=== PATIENT | female | born 1940 | race Asian ===

== ENCOUNTER → 2016-03-25 | Outpatient (CLI) | payer MEDICARE ==
[~2016-03-25] MED LIST: SYNT50TA PO; ZITH200S PO
[2016-03-25 13:31] LABS: HEMATOCRIT 43.7 % (35.0-46.0); MEAN CELL VOLUME 95.4 FL (80.0-100.0); MEAN CORPUSCULAR HEMOGLOBIN 31.7 PG (27.0-34.0); MEAN CORPUSCULAR HGB CONC 33.2 % (32.0-36.0); PLATELET COUNT 195 TH/MM3 (150-450); RED BLOOD COUNT 4.58 MIL/MM3 (4.00-5.30); RED CELL DISTRIBUTION WIDTH 14.3 % (11.6-17.2); REVIEW FLAG FINAL; WHITE BLOOD COUNT 5.3 TH/MM3 (4.0-11.0)
[2016-03-25 13:34] LABS: ALKALINE PHOSPHATASE 62 U/L (45-117); ALT (GPT) 17 U/L (10-53); ANION GAP 6 MEQ/L (5-15); AST (GOT) 14 U/L (15-37); BICARBONATE 30.4 MEQ/L (21.0-32.0); BLOOD UREA NITROGEN 15 MG/DL (7-18); CHLORIDE 103 MEQ/L (98-107); FREE T4 1.25 NG/DL (0.76-1.46); GLOMERULAR FILTRATION RATE 78 ML/MIN (>89); GLUCOSE,FASTING 103 MG/DL (74-99); HDL CHOLESTEROL 78.9 MG/DL (40.0-60.0); LDL CHOLESTEROL 155 MG/DL (0-99); SODIUM (NA) 139 MEQ/L (136-145); TOTAL BILIRUBIN ADULT 0.6 MG/DL (0.2-1.0)
[2016-03-25 14:32] LABS: HEMOGLOBIN A1a 1.1 %; HEMOGLOBIN A1b 0.8 %; HEMOGLOBIN Ao 85.5 %; HEMOGLOBIN F 1.2 %; HEMOGLOBIN LA1C 1.9 %; HEMOGLOBIN P3 3.7 %
== END ==
LOC: PLAB 09:13
PROVIDERS: ATTEND Family Medicine
DX: E03.9 Hypothyroidism, unspecified (principal); E78.00 Pure hypercholesterolemia, unspecified; R73.9 Hyperglycemia, unspecified; R53.83 Other fatigue
CPT/HCPCS: 36415; 80053; 80061; 83036; 84439; 84443; 85027

== ENCOUNTER → 2016-10-12 | Outpatient (CLI) | payer MEDICARE ==
[2016-10-12 14:02] LABS: ANION GAP 6 MEQ/L (5-15); AST (GOT) 12 U/L (15-37); BICARBONATE 32.2 MEQ/L (21.0-32.0); BLOOD UREA NITROGEN 14 MG/DL (7-18); CHLORIDE 105 MEQ/L (98-107); GLOMERULAR FILTRATION RATE 73 ML/MIN (>89); GLUCOSE,FASTING 95 MG/DL (74-99); POTASSIUM 3.5 MEQ/L (3.5-5.1); SODIUM (NA) 143 MEQ/L (136-145)
[2016-10-12 14:13] LABS: ALKALINE PHOSPHATASE 59 U/L (45-117); ALT (GPT) 19 U/L (10-53); FREE T4 1.23 NG/DL (0.76-1.46); LDL CHOLESTEROL 130 MG/DL (0-99); TOTAL BILIRUBIN ADULT 0.5 MG/DL (0.2-1.0)
[2016-10-13 23:55] LABS: THYROGLOB ABS LESS THAN 1 IU/mL (< OR = 1); THYROGLOBULN 6.3 ng/mL (2.8-40.9)
== END ==
LOC: PLAB 10:47
PROVIDERS: ATTEND Internal Medicine Endocrinology, Diabetes & Metabolism
DX: E78.5 Hyperlipidemia, unspecified (principal); E21.1 Secondary hyperparathyroidism, not elsewhere classified; E05.00 Thyrotoxicosis with diffuse goiter without thyrotoxic crisis or storm; E89.0 Postprocedural hypothyroidism
CPT/HCPCS: 36415; 80053; 80061; 82626; 84403; 84432; 84439; 84443; 84445; 86376; 86800

== ENCOUNTER → 2017-04-13 | Outpatient (CLI) | payer MEDICARE ==
[2017-04-13 13:13] LABS: FREE T4 1.07 NG/DL (0.76-1.46)
== END ==
LOC: PLAB 08:42
DX: E89.0 Postprocedural hypothyroidism (principal)
CPT/HCPCS: 36415; 84439; 84443

== ENCOUNTER 2017-07-19 13:41 | Emergency (ER) | payer MEDICARE ==
[~2017-07-19] VITALS: Ht 154.9 cm; Wt 40.0 kg
[~2017-07-19 13:41] MED LIST changes: +HYDR-3583 PO; +LEVO.05 PO; +PANT40TA3 PO; +SENN187 PO; -SYNT50TA PO; -ZITH200S PO
[2017-07-19 13:50] VITALS: BP 137/60; PULSE 76; RESP 20; TEMP 97.7; O2SAT 97
--- NOTE | 2017-07-19 14:13 | PD ---
HPI . Postoperative pain Chief Complaint: Pain: Acute or Chronic Time Seen by Provider: 13:57 Travel History International Travel<30 days: No Contact w/Intl Traveler<30days: No Traveled to known affect area: No History of Present Illness HPI Patient presents with chief complaint of postoperative pain. She is status post a C4-C5 cervical discectomy on 07/12. She was discharged with prescription for Williams 10 mg. She has been taking that but it is not controlling her pain. This patient does not speak Frisian. History is obtained from her . He states that they were seen for a postop evaluation at Dr. Abarca' office earlier today. He has been explained that the patient's pain was uncontrolled by the Williams. She was given a prescription for an additional medication. The reports that the medication was "for nerve pain." He did not get that filled because he did some research and learned that the medication was for seizures and depression. He felt that the medication was not appropriate and did not get it filled. Her pain has been ongoing since the surgery. She has no associated fevers. She does report right upper extremity numbness and tingling. PFSH Past Medical History Hx Anticoagulant Therapy: No Arthritis: Yes Asthma: No Autoimmune Disease: No Anxiety: No Depression: No Heart Rhythm Problems: No Cancer: No Cardiovascular Problems: No High Cholesterol: No Chemotherapy: No Chest Pain: No Congestive Heart Failure: No COPD: No Cerebrovascular Accident: No Diabetes: No Diminished Hearing: Yes Endocrine: Yes GERD: No Genitourinary: No Hiatal Hernia: No Immune Disorder: No Kidney Stones: No Musculoskeletal: Yes Neurologic: No Psychiatric: No Reproductive: No Respiratory: No Migraines: No Radiation Therapy: No Renal Failure: No Seizures: No Sickle Cell Disease: No Sleep Apnea: No Thyroid Disease: Yes Ulcer: No Menopausal: Yes : 2 Para: 2 Past Surgical History Abdominal Surgery: No AICD: No Arteriovenous Shunt: No Cardiac Surgery: No Ear Surgery: No Endocrine Surgery: Yes (THYROID REMOVED) Eye Surgery: Yes (BILATERAL CATARACT REMOVAL) Genitourinary Surgery: No Gynecologic Surgery: Yes () Insulin Pump: No Joint Replacement: No Oral Surgery: No Pacemaker: No Thoracic Surgery: No Social History Alcohol Use: No Tobacco Use: No Substance Use: No Allergies-Medications (Allergen,Severity, Reaction): Coded Allergies: No Known Allergies (Verified Adverse Reaction, Unknown, 07/10/17) Uncoded Allergies: NKA (Allergy, Unknown, 10/15/02) Reported Meds & Prescriptions Reported Meds & Active Scripts Active Pantoprazole (Pantoprazole Sodium) 40 Mg Tab 40 Mg PO DAILY 10 Days Senna-Lax (Sennosides) 8.6 Mg Tab 17.2 Mg PO Q12HR PRN 5 Days Hydrocodone-Acetamin 10-325 mg (Hydrocodone/Acetaminophen) 10 Mg-325 Mg Tablet 1 Tab PO Q4H PRN 2 Days Reported Synthroid (Levothyroxine Sodium) 50 Mcg Tab 50 Mcg PO DAILY Review of Systems ROS Limitations: Language Barrier Except as stated in HPI: all other systems reviewed are Neg Physical Exam Narrative GENERAL: Awake and alert and in no acute distress. She is in a cervical collar. SKIN: Warm and dry. Normal color and turgor. She has a wound to the left anterior neck. There is no drainage, redness or warmth. HEAD: Normocephalic/atraumatic. EYES: Pupils are equal. Extraocular movements are intact. NECK: Diffuse tenderness to palpation of the cervical spine. CARDIOVASCULAR: Regular rate and rhythm. RESPIRATORY: Nonlabored respirations. Normal sats. MUSCULOSKELETAL: Atraumatic. Normal muscle tone. NEUROLOGICAL: A and O 3. Right upper extremity weakness. PSYCHIATRIC: Appropriate mood and affect. Data Data Last Documented VS Vital Signs Date Time Temp Pulse Resp B/P (MAP) Pulse Ox O2 Delivery O2 Flow Rate FiO2 07/19/17 13:50 97.7 76 20 137/60 (85) 97 Orders Orders ^ Saline Lock (07/19/17 14:07) Morphine Inj (Morphine Inj) (07/19/17 14:15) Diphenhydramine Inj (Benadryl Inj) (07/19/17 14:15) Prochlorperazine Inj (Compazine Inj) (07/19/17 14:15) Spine, Cervical - Ltd (Ap&Lat) (07/19/17 14:28) MDM Medical Decision Making Medical Screen Exam Complete: Yes Emergency Medical Condition: Yes Medical Record Reviewed: Yes (C4-C5 cervical discectomy on 07/12. She also has a history of hypothyroidism.) Differential Diagnosis My differential diagnosis of postoperative pain includes but is not limited to normal expected pain, wound infection Narrative Course This patient presents with postoperative pain. She is status post a C4-C5 cervical discectomy on 07/12. I have ordered morphine, Compazine and Benadryl. I will contact Dr. Abarca' office for further recommendations. Last Impressions Cervical Spine X-Ray 07/19/17 2803 Signed Impressions: CONCLUSION: Anatomic alignment. Mild prominence retropharyngeal tissues. The x-rays were independently reviewed by me. The patient will be discharged home with instructions to fill the prescriptions that were prescribed earlier today. Physician Communication Physician Communication TERRANCE Ellis with Dr. Abarca. She has recommended an AP and lateral x-ray of her cervical spine to check the hardware. She is not concerned about infection. She saw the patient herself earlier today. The patient was given prescriptions for Neurontin, Cymbalta and a Medrol Dosepak this morning. Diagnosis Primary Impression: Postoperative pain Patient Instructions: General Instructions, Pain Management After Surgery (DC) Additional Instructions: Please have the medications filled which were prescribed earlier today. These medications worked well for nerve pain in addition to seizure disorders and depression. Disposition: 01 DISCHARGE HOME Condition: Stable Thania Sharp MD Jul 19, 2017 14:13
[2017-07-19] MEDS ORDERED: MORPHINE SULFATE 4 MG/ML INJ IV PUSH ONE (14:15)
[2017-07-19] MEDS ORDERED: PROCHLORPERAZINE INJ 10 MG/2 ML VIAL IV PUSH ONE (14:15)
[2017-07-19] MEDS ORDERED: diphenhydrAMINE HCL 50 MG/ML VIAL IV PUSH ONE (14:15)
--- NOTE | 2017-07-19 16:07 | RADRPT ---
EXAM DATE: 07/19/2017 3:07 PM EDT AGE/SEX: 76 years / Female INDICATIONS: Neck pain, cervical spine surgery 1 week ago. CLINICAL DATA: This is the patient's initial encounter. Patient reports that signs and symptoms have been present for 1 day and indicates a pain score of 10/10. MEDICAL/SURGICAL HISTORY: None. . cervical spine surgery 07/2017 COMPARISON: No prior exams available for comparison. FINDINGS: Status post anterior cervical fusion at C4-C5. Mild prominence to the retropharyngeal tissues. Alignm ent anatomic. Fracture is not appreciated. The odontoid is poorly seen. CONCLUSION: Anatomic alignment. Mild prominence retropharyngeal tissues. Electronically signed by: Kip Fonseca MD 07/19/2017 3:44 PM EDT
[2017-07-19 16:30] VITALS: BP 156/61; PULSE 75; RESP 19; O2SAT 98
== END 2017-07-19 17:12 | disposition home or self-care (01) ==
LOC: NEPD 13:41
DX: G89.18 Other acute postprocedural pain (principal); R20.0 Anesthesia of skin; R20.2 Paresthesia of skin; E07.9 Disorder of thyroid, unspecified; Z98.890 Other specified postprocedural states; Z87.39 Personal history of other diseases of the musculoskeletal system and connective tissue
CPT/HCPCS: 72040; 96374; 96375; 99284; J0780; J1200; J2270